=== PATIENT | male | born 1985 | race Caucasian/White ===

== ENCOUNTER 2022-07-30 19:25 | Emergency (ER) | payer OTHER ==
[~2022-07-30] VITALS: Ht 180.3 cm; Wt 72.6 kg
[2022-07-30] MEDS ORDERED: AMPICILLIN/SULBAC 1.5GM VIAL ONE (19:46)
[2022-07-30] MEDS ORDERED: UNASYN 3GM VIAL IV ONE (20:00)
[2022-07-30] MEDS ORDERED: 0.9%NACL 1000ML 1,000 ML IV ONE (20:00)
[2022-07-30 20:12] LABS: BASOPHILS % (AUTO) 0.3 % (0.0-5.0); EOSINOPHILS % (AUTO) 0.3 % (0.0-8.0); LYMPHOCYTES % (AUTO) 14.6 % (21.0-51.0); MEAN CORPUSCULAR HEMOGLOBIN 29.3 pg (27.0-33.0); MEAN CORPUSCULAR HGB CONC 33.9 g/dL (32.0-36.0); MEAN CORPUSCULAR VOLUME 86.3 fL (79-99); MONOCYTES % (AUTO) 10.9 % (3.0-13.0); NEUTROPHILS % (AUTO) 73.5 % (40.0-77.0); PLATELET COUNT (AUTO) 293 K/uL (130-400); RED BLOOD CELL COUNT(AUTO) 5.33 MIL/uL (4.50-6.20); RED CELL DISTRIBUTION WIDTH 12.3 % (11.0-15.5); WHITE BLOOD COUNT (AUTO) 10.2 K/uL (4.8-10.8)
[2022-07-30 20:24] LABS: CREATININE 1.1 mg/dL (0.5-1.5); POTASSIUM 3.5 mmol/L (3.5-5.1)
[2022-07-30 20:29] LABS: TOTAL PROTEIN, SERUM 8.5 g/dL (6.0-8.3)
[2022-07-30] MEDS ORDERED: BENZOCAINE 20% 57 GM SPRAY TP SCH (20:30)
[2022-07-30] MEDS ORDERED: IOHEXOL-350 50ML VIAL IV ONE (20:39)
[2022-07-30 21:48] VITALS: BP 128/72
[2022-07-30] MEDS ORDERED: AMOX1TAB16 PO (22:21)
== END 2022-07-30 22:34 | disposition home or self-care (01) ==
LOC: EDH 19:25
DX: J36 Peritonsillar abscess (principal); Z98.890 Other specified postprocedural states
CPT/HCPCS: 99285; 42999; 96374; 70491; 96361; 80053; 85025; 87040 ×2; 87880; 83605; 36415; J7030; J0295 ×2; Q9967

== ENCOUNTER 2022-07-31 11:19 | Emergency (ER) | payer OTHER ==
[~2022-07-31] VITALS: Ht 182.9 cm; Wt 72.6 kg
[~2022-07-31 11:19] MED LIST: AMOX1TAB16 PO
[2022-07-31 12:07] VITALS: BP 129/78
== END 2022-07-31 12:09 | disposition home or self-care (01) ==
LOC: EDH 11:19
DX: J36 Peritonsillar abscess (principal); Z79.899 Other long term (current) drug therapy
CPT/HCPCS: 99282